=== PATIENT | female | born 1965 | race American Indian/Alaskan Native ===

== ENCOUNTER 2016-11-26 10:03 | Outpatient (CLI) | payer OTHER | END 2016-11-26 10:04 | disposition home or self-care (01) | LOC: MAMMO 10:03 | PROVIDERS: ATTEND Family Medicine | DX: R92.8 Other abnormal and inconclusive findings on diagnostic imaging of breast (principal) | CPT/HCPCS: 77066; G0204 ==

== ENCOUNTER 2019-07-20 03:47 | Inpatient (IN) | payer OTHER ==
[2019-07-20 04:44] LABS: Basophils % (Auto) 0.3 % (0.0-1.8); Eosinophils # (Auto) 0.1 K/mm3 (0.0-0.4); Eosinophils % (Auto) 0.8 % (0.0-4.3); Hemoglobin 12.7 gm/dl (10.1-14.3); Lymphocytes # (Auto) 2.5 K/mm3 (1.2-5.4); Lymphocytes % (Auto) 28.2 % (13.4-35.0); Mean Corpuscular HGB Conc 33 % (30-34); Mean Corpuscular Volume 89 fl (79-97); Monocytes # (Auto) 0.5 K/mm3 (0.0-0.8); Monocytes % (Auto) 5.7 % (0.0-7.3); Platelet Count 232 K/mm3 (140-440); Red Blood Count 4.26 M/mm3 (3.65-5.03); Red Cell Distribution Width 13.2 % (13.2-15.2)
--- NOTE | 2019-07-20 05:07 | XRay Report ---
CHEST 2 VIEW INDICATION / CLINICAL INFORMATION: Chest Pain. COMPARISON: None available. FINDINGS: SUPPORT DEVICES: None. HEART / MEDIASTINUM: No significant abnormality. LUNGS / PLEURA: No significant pulmonary or pleural abnormality.. No pneumothorax. ADDITIONAL FINDINGS: No significant additional findings. IMPRESSION: 1. No acute findings. Signer Name: Fabio Alba MD Signed: 07/20/2019 5:03 AM Workstation Name: [id number]
[2019-07-20 05:10] LABS: Alanine Aminotransferase 18 units/L (7-56); Albumin 4.4 g/dL (3.9-5); BUN/Creatinine Ratio 14; Blood Urea Nitrogen 10 mg/dL (7-17); Hemolysis Index 23
[2019-07-20] MEDS ORDERED: MORPHINE IV ONE (05:22)
[2019-07-20 06:59] LABS: INR 0.98 (0.87-1.13)
[2019-07-20 07:00] LABS: Partial Thromboplastin Time 31.3 Sec. (24.2-36.6)
[2019-07-20] MEDS ORDERED: TORADOL IV ONE (07:22)
[2019-07-20 07:24] LABS: Creatine Kinase MB < 1.0 ng/mL (0.0-4.0)
--- NOTE | 2019-07-20 09:00 | Emergency Department Report ---
ED Chest Pain HPI - General Chief Complaint: Chest Pain Stated Complaint: CHEST PAIN Time Seen by Provider: 07/20/19 06:19 Source: patient Mode of arrival: Ambulatory Limitations: No Limitations - History of Present Illness Initial Comments: This 4-year-old female who states that she has never had any cardiac workup beyond an EKG with her primary care doctor. She states that she had a "shooting pain across her anterior chest but not down her arm which began at about 1:00 last night. She's had no recent travel no leg pain or swelling. The pain is n onpleuritic in nature. She states that it somewhat feels worse when she lays down flat. She does not complain of dyspnea nausea or vomiting. She states that she does not have a family history of myocardial infarction nor venous thromboembolism. She is diabetic. MD Complaint: chest pain -: unknown (awoke with pain) Onset: awoke with symptoms Pain Location: left chest Pain Radiation: other (shooting across chest, not in back or arms) Severity scale (0 -10): 10 Quality: other (chest could describe it as "shooting") Consistency: intermittent Improves With: nothing Worsens With: other (laying flat) re: denies: nausea, vomting, diaphoresis Other Symptoms: denies: cough, fever, syncope Treatments Prior to Arrival: none - Related Data On Oral Contraceptives: No Allergies Allergy/AdvReac Type Severity Reaction Status Date / Time No Known Allergies Allergy Verified 07/20/19 09:29 Heart Score - HEART Score History: Slightly suspicious EKG: Normal Age: 45-65 Risk factors: 1-2 risk factors Troponin: < normal limit HEART Score: 2 - Critical Actions Critical Actions: 0-3 pts:0.9-1.7%risk of adverse cardiac event.Candidate for discharge ED Review of Systems ROS: Stated complaint: CHEST PAIN Other details as noted in HPI Constitutional: denies: chills, fever Eyes: denies: eye pain, eye discharge, vision change ENT: denies: ear pain, throat pain Respiratory: denies: cough, shortness of breath, wheezing Cardiovascular: chest pain. denies: palpitations Endocrine: no symptoms reported Gastrointestinal: denies: abdominal pain, nausea, diarrhea Genitourinary: denies: urgency, dysuria, discharge Musculoskeletal: denies: back pain, joint swelling, arthralgia Skin: denies: rash, lesions Neurological: denies: headache, weakness, paresthesias Psychiatric: denies: anxiety, depression Hematological/Lymphatic: denies: easy bleeding, easy bruising ED Past Medical Hx - Past Medical History Previous Medical History?: Yes Hx Diabetes: Yes - Social History Smoking Status: Never Smoker Substance Use Type: None ED Physical Exam - General Limitations: No Limitations General appearance: alert, in no apparent distress - Head Head exam: Present: atraumatic, normocephalic - Eye Eye exam: Present: normal appearance. Absent: scleral icterus - ENT ENT exam: Present: mucous membranes moist - Neck Neck exam: Present: normal inspection - Respiratory Respiratory exam: Present: normal lung sounds bilaterally. Absent: respiratory distress - Cardiovascular Cardiovascular Exam: Present: regular rate, normal rhythm. Absent: systolic murmur, diastolic murmur, rubs, gallop - GI/Abdominal GI/Abdominal exam: Present: soft, normal bowel sounds. Absent: distended, tenderness, guarding, rebound, rigid - Extremities Exam Extremities exam: Present: normal inspection, full ROM, normal capillary refill. Absent: tenderness, pedal edema, joint swelling, calf tenderness - Back Exam Back exam: Present: normal inspection - Neurological Exam Neurological exam: Present: alert, oriented X3, CN II-XII intact. Absent: motor sensory deficit - Psychiatric Psychiatric exam: Present: normal affect, normal mood - Skin Skin exam: Present: warm, dry, intact, normal color. Absent: rash ED Course Vital Signs 07/20/19 07/20/19 07/20/19 04:17 06:00 07:15 Temperature 97.7 F 98 F Pulse Rate 86 93 H 104 H Respiratory 18 19 18 Rate Blood Pressure 152/91 Blood Pressure 140/63 154/80 [Left] O2 Sat by Pulse 97 95 96 Oximetry 07/20/19 07/20/19 07:47 09:08 Temperature Pulse Rate 98 H 97 H Respiratory 16 14 Rate Blood Pressure Blood Pressure 135/79 122/65 [Left] O2 Sat by Pulse 96 97 Oximetry - Reevaluation(s) Reevaluation #1: She admitted to the hospitalist service further care and evaluation. 07/20/19 09:00 ED Medical Decision Making - Lab Data Result diagrams: 07/20/19 09:29 07/20/19 09:29 Critical care attestation.: If time is entered above; I have spent that time in minutes in the direct care of this critically ill patient, excluding procedure time. ED Disposition Clinical Impression: Chest pain Qualifiers: Chest pain type: unspecified Qualified Code(s): R07.9 - Chest pain, unspecified Disposition: 07 LEFT AGAINST MED ADVICE Is pt being admited?: Yes Does the pt Need Aspirin: Yes Condition: Stable Time of Disposition: 15:13
[2019-07-20 09:09] VITALS: BP 122/65
--- NOTE | 2019-07-20 09:26 | History and Physical Report ---
History of Present Illness Date of examination: 07/20/19 Medications and Allergies Allergies Allergy/AdvReac Type Severity Reaction Status Date / Time No Known Allergies Allergy Unverified 02/09/14 09:40 Active Meds: Active Medications Aspirin (Ecotrin) 325 mg PO QDAY ASHOK Atorvastatin Calcium (Lipitor) 80 mg PO QHS ASHOK Nitroglycerin (Nitrostat) 0.4 mg SL Q5M PRN PRN Reason: Chest Pain Sodium Chloride (Sodium Chloride Flush Syringe 10 Ml) 10 ml IV PRN PRN PRN Reason: LINE FLUSH Exam - Constitutional Vitals: Temp Pulse Resp BP Pulse Ox 98 F 97 H 14 122/65 97 07/20/19 06:00 07/20/19 09:08 07/20/19 09:08 07/20/19 09:08 07/20/19 09:08 Results - Labs CBC & Chem 7: 07/20/19 04:28 07/20/19 04:28 Labs: Abnormal lab results 07/20/19 Range/Units 04:28 Glucose 279 H (65-100) mg/dL
[2019-07-20] MEDS ORDERED: NITROSTAT SL PRN (09:30)
[2019-07-20] MEDS ORDERED: SODIUM CHLORIDE FLUSH SYRINGE 10 ML IV PRN (09:30)
[2019-07-20 09:46] LABS: Basophils # (Auto) 0.1 K/mm3 (0.0-0.1); Basophils % (Auto) 0.8 % (0.0-1.8); Eosinophils % (Auto) 0.1 % (0.0-4.3); Hematocrit 35.7 % (30.3-42.9); Hemoglobin 11.7 gm/dl (10.1-14.3); Lymphocytes # (Auto) 1.5 K/mm3 (1.2-5.4); Lymphocytes % (Auto) 16.4 % (13.4-35.0); Mean Corpuscular HGB Conc 33 % (30-34); Mean Corpuscular Volume 89 fl (79-97); Monocytes # (Auto) 0.6 K/mm3 (0.0-0.8); Platelet Count 220 K/mm3 (140-440); Red Blood Count 4.03 M/mm3 (3.65-5.03)
[2019-07-20] MEDS ORDERED: ECOTRIN PO SCH (10:00)
[2019-07-20 10:06] LABS: BUN/Creatinine Ratio 11; Blood Urea Nitrogen 8 mg/dL (7-17); Calcium 9.7 mg/dL (8.4-10.2); Hemolysis Index 6
--- NOTE | 2019-07-20 13:40 | Event Note ---
Date: 07/20/19 Patient left AMA and did not want hospitalization.
[2019-07-20] MEDS ORDERED: ASPIRIN PO ONE (16:00)
== END 2019-07-20 10:32 | disposition left against medical advice (07) | DRG 313 ==
LOC: ED 03:47 → 4A 09:06
PROVIDERS: ADMIT Internal Medicine; ATTEND Internal Medicine
DX: R07.9 Chest pain, unspecified (principal); E11.9 Type 2 diabetes mellitus without complications; Z53.21 Procedure and treatment not carried out due to patient leaving prior to being seen by health care provider
CPT/HCPCS: 36415; 71046; 80048; 80053; 82550; 82553; 83880; 84484; 85025; 85610; 85730; 93005; 93010; 96374; 96375; G0378; J1885; J2270

== ENCOUNTER 2020-08-03 10:00 | Outpatient (CLI) | payer OTHER ==
--- NOTE | 2020-08-03 15:41 | Mammography Report ---
DIGITAL SCREENING MAMMOGRAM WITH CAD, 08/03/2020 INDICATION: Routine screening mammography. TECHNIQUE: Digital bilateral 2D mammography was obtained in the craniocaudal and mediolateral obliq ue projections. This examination was interpreted with the benefit of Computer-Aided Detection analysi s. COMPARISON: Prior mammogram 11/26/2016 FINDINGS: Breast Density: There are scattered areas of fibroglandular density. There is no evidence of dominant mass, suspicious calcifications or architectural distortion in eithe r breast. There has been no significant change compared with the prior examination. IMPRESSION: Follow up recommendation: Routine yearly BI-RADS Category 1: Negative. A "normal" or negative report should not discourage follow up or biopsy of a clinically significant f inding. A written summary of these findings will be mailed to the patient. The patient will be entered into a mammography reporting system which will generate a reminder letter for the patient's next appointmen t at the appropriate interval. The [employer] recommends yearly mammograms starting at age 40 and continuing as l marcos as a woman is in good health. Breast MRI is recommended for women with an approximate 20-25% or greater lifetime risk of breast cancer, including women with a strong family history of breast or ova mendez cancer or who have been treated for Hodgkin's disease. Signer Name: Kenia Fraser MD Signed: 08/03/2020 3:37 PM Workstation Name: [email or web address]
== END 2020-08-03 10:01 | disposition home or self-care (01) ==
LOC: MAMMO 10:00
PROVIDERS: ATTEND Family Medicine
DX: Z12.31 Encounter for screening mammogram for malignant neoplasm of breast (principal)
CPT/HCPCS: 77067

== ENCOUNTER 2021-09-17 11:03 | Outpatient (CLI) | payer OTHER ==
--- NOTE | 2021-09-18 10:08 | Mammography Report ---
DIGITAL SCREENING MAMMOGRAM WITH CAD, 09/17/2021 CLINICAL INFORMATION / INDICATION: Routine screening mammography. TECHNIQUE: Digital bilateral 2D mammography was obtained in the craniocaudal and mediolateral obliqu e projections. This examination was interpreted with the benefit of Computer-Aided Detection analysis . COMPARISON: Prior mammograms 08/03/2020 and 11/26/2016 FINDINGS: Breast Density: There are scattered areas of fibroglandular density. No dominant mass, suspicious calcifications, or architectural distortion in either breast. There has been no significant change compared with the prior examinations. IMPRESSION: No mammographic evidence of malignancy. Follow up recommendation: Routine yearly BI-RADS Category 1: Negative. A "normal" or negative report should not discourage follow up or biopsy of a clinically significant f inding. A written summary of these findings will be mailed to the patient. The patient will be entered into a mammography reporting system which will generate a reminder letter for the patient's next appointmen t at the appropriate interval. The [employer] recommends yearly mammograms starting at age 40 and continuing as l marcos as a woman is in good health. Breast MRI is recommended for women with an approximate 20-25% or greater lifetime risk of breast cancer, including women with a strong family history of breast or ova mendez cancer or who have been treated for Hodgkin's disease. Signer Name: Kenia Fraser MD Signed: 09/18/2021 10:04 AM Workstation Name: [email or web address]
== END 2021-09-17 11:04 | disposition home or self-care (01) ==
LOC: MAMMO 11:03
PROVIDERS: ATTEND Family Medicine
DX: Z12.31 Encounter for screening mammogram for malignant neoplasm of breast (principal)
CPT/HCPCS: 77067